=== PATIENT | female | born 1975 | race Two or more races ===

== ENCOUNTER 2021-05-16 18:11 | Emergency (ER) | payer SELFPAY ==
[~2021-05-16] VITALS: Ht 157.5 cm; Wt 74.8 kg
[2021-05-16 22:06] VITALS: BP 136/85
[2021-05-16] MEDS ORDERED: TETANUS-DIPTH-ACEL PERTUSSIS 0.5ML SYR Tdap IM ONE (22:15)
[2021-05-16] MEDS ORDERED: CEPH500C PO (22:31)
== END 2021-05-16 23:25 | disposition home or self-care (01) ==
LOC: ER 18:13
DX: S61.210A Laceration without foreign body of right index finger without damage to nail, initial encounter (principal); W25.XXXA Contact with sharp glass, initial encounter; Y93.89 Activity, other specified; Y92.89 Other specified places as the place of occurrence of the external cause; Y99.8 Other external cause status
CPT/HCPCS: 12002; 29130; 73130; 90471; 90715